=== PATIENT | female | born 1955 | race Caucasian/White ===

== ENCOUNTER → 2024-05-03 13:53 | Outpatient (REF) | payer MEDICARE, OTHER, SELFPAY | LOC: WDC 13:53 | PROVIDERS: ATTENDING PHYSICIAN Surgery; FAMILY PHYSICIAN Family Medicine | DX: Z12.31 Encounter for screening mammogram for malignant neoplasm of breast (principal); Z85.3 Personal history of malignant neoplasm of breast; N64.4 Mastodynia | CPT/HCPCS: 77063; 77067 ==

== ENCOUNTER → 2024-05-05 09:07 | Outpatient (REF) | payer MEDICARE, OTHER, SELFPAY | LOC: RAD 09:07 | PROVIDERS: ATTENDING PHYSICIAN Surgery; FAMILY PHYSICIAN Family Medicine | DX: Z85.3 Personal history of malignant neoplasm of breast (principal) | CPT/HCPCS: 71260; 74177; 78306; A9503; Q9967 ==

== ENCOUNTER 2024-05-11 06:27 | Day surgery (SDC) | payer MEDICARE, OTHER, SELFPAY ==
[2024-05-11] VITALS (10 sets, daily range): BP systolic 135–155; BP diastolic 61–72; BMI 17.9
== END 2024-05-11 13:07 | disposition home or self-care (01) ==
LOC: SDS 06:27
PROVIDERS: ATTENDING PHYSICIAN Internal Medicine Critical Care Medicine
DX: C77.1 Secondary and unspecified malignant neoplasm of intrathoracic lymph nodes (principal); C78.01 Secondary malignant neoplasm of right lung; Z85.3 Personal history of malignant neoplasm of breast; Z72.0 Tobacco use; Z77.29 Contact with and (suspected) exposure to other hazardous substances
CPT/HCPCS: 31629; 31623; 31624; 31654; 88172; 88173; 88112; 88313; 88341; 88342; 88360

== ENCOUNTER 2024-05-24 04:15 | Inpatient (IN) | payer MEDICARE, OTHER, SELFPAY ==
[2024-05-23 22:05] VITALS: BP 191/100
--- NOTE | 2024-05-23 22:26 | ED.GENMED ---
History of Present Illness
General
Chief Complaint: Breathing Problem
Time Seen by Provider: 05/23/24 22:26
History of Present Illness
History of Present Illness:
HPI: The patient presents with shortness of breath worsening over the last few weeks. She was diagnosed with lung cancer earlier this month. She had an endoscopic bronchial ultrasound which confirmed suspected diagnosis of lung cancer as seen on
CT. She spoke to Dr. Lulu su who wanted to come in here 'to get checked for a blood clot'. Patient denies history of COPD but daughter at bedside feels that she does have COPD.
EXAM:
GENERAL: The patient is in mild distress
HEENT: Moist oral mucosa
CARDIOVASCULAR: No murmurs, normal heart rate, regular rhythm, No chest wall tenderness
PULMONARY: Mild respiratory distress, breath sounds are equally decreased
ABDOMEN: Soft with no peritoneal signs, no tenderness
NEUROLOGIC: Fair strength all extremities, no coordination deficits
PSYCHIATRIC: Appropriate mental status, normal insight and judgement, but there may be some very mild cognitive deficits
EXTREMITIES: Nontender, trace bilateral lower extremity edema, moves all extremities equally
SKIN: No rash, no lesions
TIME OF INITIAL ENCOUNTER: 10:30 PM
NUMBER AND COMPLEXITY OF PROBLEMS ADDRESSED AT THE ENCOUNTER
� Chronic conditions affecting care: Breast and lung cancer, lupus, has had surgery for cerebral aneurysm in 2016, she has had Linq implant and explant
� Acute Exacerbation and/or Progression of Chronic Illness: This is an acute problem
� Differential Diagnosis includes: COPD exacerbation, PE, worsening lung mass, heart failure unlikely
AMOUNT AND/OR COMPLEXITY OF DATA TO BE REVIEWED AND ANALYZED
� I performed an independent evaluation of and my interpretation is:
EKG: Sinus 102, septal Q waves
CT: I personally viewed CT imaging. No evidence for PE however mass again same and pleural effusion has worsened significantly
X-rays:
Laboratory Studies: White count 10.5, hemoglobin 11.1, normal renal function, troponin 0.048 (troponin in 2018 was normal), BNP 126, COVID-negative, flu negative
Other:
� Review of other/old records: Echo from 2021. EF greater than 75% with normal diastolic function. She had a CT of the chest 2 weeks ago that showed a new subpleural soft tissue mass in the right upper lobe extending into the
superior mediastinum and encasing the right mainstem bronchus which is felt to be malignancy. She then had endoscopic bronchial ultrasound by Dr. Garg 12 days ago
� Clinical information was obtained by an independent historian: Spoke with daughter at bedside
� Prescriptions/Medications Considered but not given:
� Further testing considered but not performed:
RISK OF COMPLICATIONS AND/OR MORBIDITY OR MORTALITY OF PATIENT MANAGEMENT
� Social determinants of health affecting care: Lives at home, has upcoming PET/CT
� Discussion with other providers: Dr. Brush for admission at 12:42 AM
� Escalation of care including admission/observation vs risk of discharge considered: As patient states that her oncologist was concerned about the center in here 'to be checked for a blood clot', will obtain CTA tonight. Her
room air sat is about 92%, she was placed on supplemental oxygen. I also gave her nebs and steroids for treatment of presumed COPD. CT shows worsening findings. Planning admission to the hospital as she is at least borderline hypoxic and 'doing
poorly' regarding her breathing according to family.
Past History
Past History
ED Past Medical History: Cancer (Breast cancer around the year 1999) and Other (Cutaneous lupus, subarachnoid hemorrhage with ruptured tetlin of May aneurysm requiring coiling in June 2016)
ED Past Surgical History: Other (Mastectomy,subarachnoid hemorrhage with ruptured tetlin of May aneurysm requiring coiling in June 2016)
Social History
Tobacco: Smoker
Alcohol: Occasional
Drug: None
Personal:
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
Family History
Family History: Other (2 cousins w/ SAH and aneurysms)
Phy Exam
Physical Exam
Physical Exam:
See HPI
Scores
Heart Failure Risk
Heart Failure Risk Score: Not Applicable
Course
Orders/Labs/Results
Orders:
Orders
05/23/24 22:10
Electrocardiogram (*1) Urgent
Reason for Study: Shortness of Breath
EKG- Treatment ONCE
05/23/24 22:37
Complete Blood Count/With Diff Urgent
Comprehensive Metabolic Panel Urgent
Protime/PTT Urgent
05/23/24 22:41
Ipratropium/Albuterol Sulfate [Duoneb] 3 ml INH R NOW ONE
MethylPREDNISolone PF [Solu-Medrol Pf] 125 mg IV NOW STA
05/23/24 22:42
0.9% Sodium Chloride 500 ml [Nss] 500 ml IV BOLUS
05/23/24 23:05
COVID-19 Antigen Urgent
Source: Nasal Swab
NT-proBNP Urgent
Troponin I Urgent
Influenza A+B Rapid Molecular Urgent
TYLER Source: Nasal Swab
Specimen Description:
05/24/24 00:15
CT Chest Pe Study Urgent
Reason For Exam: recent dx lung CA, worsening SOB
05/24/24 00:23
Hydrocodone 5/APAP 325 [[place] 5/325] 2 tablet PO NOW STA
Abnormal Lab Results
05/23/24 05/23/24
22:37 23:05
RBC 3.93 L 10^6/uL
(4.20-5.40)
Hgb 11.1 L g/dL
(12.0-16.0)
Hct 31.0 L %
(37.0-47.0)
MCV 78.9 L fL
(81.0-99.0)
Plt Count 468 H 10^3/uL
(130-400)
Abs Immat Gran (auto) 0.1 H 10^3/uL
(0-0.05)
Absolute Monos (auto) 1.6 H 10^3/uL
(0.1-0.6)
Monocytes % 15.2 H %
(1.7-9.3)
Sodium 130 L mmol/L
(135-145)
Creatinine 0.4 L mg/dL
(0.6-1.0)
Glucose 108 H mg/dl
(70-99)
Troponin I 0.048 H* ng/ml
Total Protein 6.1 L g/dl
(6.3-8.2)
Albumin 3.4 L g/dl
(3.5-5.0)
05/23/24 22:37
05/23/24 22:37
Vital Signs
Initial and Last Documented VS:
Initial Vital Signs
Temp Pulse Resp BP Pulse Ox
98.6 F 107 16 191/100 92
05/23/24 22:05 05/23/24 22:05 05/23/24 22:05 05/23/24 22:05 05/23/24 22:05
Last Documented Vital Signs
Temp Pulse Resp BP Pulse Ox
98.6 F 98 24 191/100 93
05/23/24 22:05 05/23/24 23:45 05/23/24 23:45 05/23/24 22:05 05/23/24 23:45
*Critical Care Note
Total Time (30-74mins, 75-104mins- exclusive of procedures): Not Applicable
ED Attending Note
-
Portions of this chart may have been created with voice recognition software.� Occasional wrong word or��sound alike� substitutions may have occurred due to the inherent limitations of voice recognition software.
Discharge Plan
Departure
Patient Disposition: Admit
Date of Disposition: 05/24/24
Time of Disposition: 00:36
Presentation/result/management discussed w/ accepting MD/DO: Hospitalist
Patient with high blood pressure during this ER visit?: Yes
Discharge Problem:
Pleural effusion
Prescriptions:
No Action
cholecalciferol (vitamin D3) [Vitamin D3] 125 mcg (5,000 unit) Tablet
125 mcg PO .Q THURSDAY
hydroxychloroquine 100 mg Tablet
100 mg PO DAILY
rosuvastatin 5 mg Tablet
5 mg PO DAILY
hydrocodone-acetaminophen 10-325 mg Tablet
1 tab PO Q4H
Breztri Aerosphere 160-9-4.8 mcg/actuation Hfa Aerosol Inhaler
2 inh INHALATION BID
albuterol sulfate 90 mcg/actuation Hfa Aerosol Inhaler
2 puff INHALATION Q6H
Primatene Mist 0.125 mg/actuation Hfa Aerosol Inhaler
1 puff INHALATION BID PRN (Reason: if albuterol doesnt work)
Referrals:
Stephanie Bliss MD [Family Provider] -
Interventions
Interventions:
*Risk Screen - Suicide Last Done: 05/23/24 23:00
*General Assessment Last Done: 05/23/24 22:05
*Neglect/Abuse Screening Last Done: 05/23/24 23:00
ED- Fall Risk Assessment Last Done: 05/23/24 22:40
*ED COVID-19 Vaccine History Last Done: 05/23/24 22:05
ED- Cardiac Assessment Last Done: 05/23/24 23:25
ED- Pulmonary Assessment Last Done: 05/23/24 23:25
Discharge Date and Time
Print Language: WOLOF
[2024-05-23 22:47] LABS: % Basophils 0.7 % (0-2); % Immature Granulocytes 0.5 % (0-0.5); % Monocytes 15.2 % (1.7-9.3); % Neutrophils 57.6 % (42.2-75.2); Absolute Basophils 0.1 10^3/uL (0-0.2); Absolute Eosinophils 0.2 10^3/uL (0-0.7); Absolute Immature Granulocytes 0.1 10^3/uL (0-0.05); Absolute Lymphocytes 2.5 10^3/uL (1.2-3.4); Absolute Monocytes 1.6 10^3/uL (0.1-0.6); Hemoglobin 11.1 g/dL (12.0-16.0); Mean Corp Hgb Conc. 35.8 g/dL (33.0-37.0); Mean Corpuscular Hgb 28.2 pg (27.0-31.0); Mean Corpuscular Volume 78.9 fL (81.0-99.0); Mean Platelet Volume 9.2 fL (7.4-10.4); Nucleated Red Blood Cells % 0 %; Platelet Count 468 10^3/uL (130-400); Red Blood Cell Count 3.93 10^6/uL (4.20-5.40); Red Cell Dist. Width 13.4 % (11.5-14.5); White Blood Cell Count 10.5 10^3/uL (4.8-10.8)
[2024-05-23] MEDS: DUONEB 3 ML INH (22:48)
[2024-05-23] MEDS: SOLU-MEDROL PF 125 MG IV (22:48)
[2024-05-23] MEDS: NSS 500 IV (22:50)
[2024-05-23 22:53] LABS: INR 0.94; PT 12.4 Sec (11.4-14.6)
[2024-05-23 22:54] LABS: APTT 32.8 Sec (23.4-35.0)
[2024-05-23 23:01] LABS: ALT (SGPT) 14 U/L (0-35); AST (SGOT) 24 U/L (14-36); Albumin 3.4 g/dl (3.5-5.0); Alkaline Phosphatase 100 U/L (38-126); Blood Urea Nitrogen 9 mg/dl (7-17); Calcium 9.9 mg/dl (8.4-10.2); Carbon Dioxide 26 mmol/L (22-30); Glucose 108 mg/dl (70-99); Total Bilirubin 0.3 mg/dl (0.2-1.3); Total Protein 6.1 g/dl (6.3-8.2); eGFR > 60.00
[2024-05-23 23:03] LABS: Chloride 98 mmol/L (98-107); Potassium 4.2 mmol/L (3.5-5.1); Sodium 130 mmol/L (135-145)
[2024-05-23 23:35] LABS: COVID-19 Antigen Negative (Negative)
[2024-05-23 23:40] LABS: NT-proBNP 126 pg/ml; Troponin I 0.048 ng/ml
[2024-05-24] VITALS (18 sets, daily range): BP systolic 89–184; BP diastolic 55–107; PULSE 86–96; O2SAT 94; BMI 20.4; BMI 20.5
[2024-05-24] MEDS: NORCO 5/325 2 TABLET PO (00:27)
--- NOTE | 2024-05-24 04:08 | HPS.HSE ---
Family Physician
-
Family Physician: Stephanie Bliss
Chief Complaint
-
SOB, Chest Pain
History of Present Illness
Patient is a 68y F with PMH significant for remote breast cancer and recently discovered R chest mass who presents to ED complaining of worsening SOB and chest pain over the past few days. Patient initially developed chest discomfort / back pain
in late March. Evaluation led to discovery of large R lung / chest mass. Patient underwent FOB on 05/11 and pathology was consistent with poorly differentiated carcinoma. She is scheduled for PET scan on Thursday AM.
Patient notes AM cough productive of thick mucus. She denies any fevers / chills. She has sharp / spastic anterior chest pains that are worse with coughing or deep breathing.
She also complains of aching pain in the R upper back.
Patient reports very minimal and very transient relief of her symptoms with current pain meds and inhalers.
With worsening symptoms, she presented to the ED for evaluation and to rule out PE at the direction of her Oncologist.
Medical History
Past Medical History
Past Medical History: Reports Other
Additional Past Medical History:
CVA / R CRAO
SAH
Right Breast Cancer s/p Mastectomy, Chemo, XRT (20+ years ago)
Sjogren's Syndrome
Lupus (Cutaneous)
Peripheral Neuropathy
Past Surgical History: Reports Other
Additional Past Surgical History:
Aneurysm Coil
Right Mastectomy and Reconstruction
Left Temporal Artery Bx
FOB / Biopsy
LINQ
Social History
Tobacco: Smoker (Current / recent every day smoker. > 40 pack years total.)
Alcohol: Occasional
Drug: None
Family History
Family History: Not pertinent
Allergies / Home Medications
Allergies reflects when Allergies were last updated in [employer].
Home Medications with original date entered in [employer]
Allergy/Medication List:
Allergies
Allergy/AdvReac Type Severity Reaction Status Date / Time
No Known Allergies Allergy Verified 05/11/24 08:49
Home Medications
cholecalciferol (vitamin D3) 125 mcg (5,000 unit) tablet (Vitamin D3) 125 mcg PO .Q Thursday07/11/22
hydroxychloroquine 100 mg tablet 100 mg PO DAILY 07/11/22
rosuvastatin 5 mg tablet 5 mg PO DAILY 07/11/22
albuterol sulfate 90 mcg/actuation aerosol inhaler 2 puff inhalation Q6H 05/24/24
budesonide 160 mcg-glycopyr 9 mcg-formot 4.8 mcg/actuation HFA inhaler (Breztri Aerosphere) 2 inh inhalation BID 05/24/24
epinephrine 0.125 mg/actuation aerosol inhaler (Primatene Mist) 1 puff inhalation BID PRN if albuterol doesnt work 05/24/24
hydrocodone 10 mg-acetaminophen 325 mg tablet 1 tab PO Q4H 05/24/24
Review of Systems
-
History Source: Patient
A 12 point ROS was completed and negative except as noted: Yes
Constitutional: Reports Fatigue; Denies Fever or Chills
EENT: Denies Sore Throat
Respiratory: Reports Cough and Trouble Breathing; Denies Hemoptysis
Cardiac: Reports Chest Pain; Denies Diaphoresis, Palpitations or Syncope
Abdomen/GI: Reports Nausea; Denies Abdominal Pain, Vomiting, Diarrhea or Constipated
: Denies Dysuria, Frequency or Flank Pain
Musculoskeletal: Reports Other (Back pain); Denies Joint Pain or Edema
Neurological: Denies Dizzy or Headache
Psych: Denies Depression or Anxiety
Physical Exam
Vital Signs
Vital Signs
Temp Pulse Resp BP Pulse Ox
98.6 F 91 23 152/61 94
05/23/24 22:05 05/24/24 03:15 05/24/24 03:15 05/24/24 03:00 05/24/24 03:15
Physical Exam
General: Other (68y F in no acute distress.)
HEENT: Other (Dry MM, neck supple.)
Respiratory: Other (Decreased BS throughout the R lung. L essentially clear.)
Cardiac: S1/S2 and Regular Rhythm; No Murmur
GI: Soft, Non Tender, Non Distended and Normal Bowel Sounds
Musculoskeletal: No Clubbing, No Cyanosis and No Edema
Neuro: AO x 3
Laboratory Results
-
05/23/24 22:37
05/23/24 22:37
Laboratory Results
PT 12.4 Sec (11.4-14.6) 05/23/24 22:37
INR 0.94 05/23/24 22:37
APTT 32.8 Sec (23.4-35.0) 05/23/24 22:37
Total Bilirubin 0.3 mg/dl (0.2-1.3) 05/23/24 22:37
AST 24 U/L (14-36) 05/23/24 22:37
ALT 14 U/L (0-35) 05/23/24 22:37
Alkaline Phosphatase 100 U/L (38-126) 05/23/24 22:37
Troponin I 0.048 ng/ml H* 05/23/24 23:05
Impression/Plan
-
A/P: Patient is a 68y F with PMH significant for remote breast cancer and recently diagnosed R lung mass who presents to ED complaining of SOB and chest pain.
Right Lung Mass / malignancy
Right Pleural Effusion
Subjective Dyspnea secondary to the above
Chest Pain secondary to the above
- Admit for further evaluation and treatment.
- Adjust medication regimen as needed for improved symptom control.
- Pulmonary and Oncology evaluations for additional recommendations.
- ? R thoracentesis which may help to temporarily improve dyspnea.
- Patient is scheduled for PET CT as next step in her evaluation on Thursday.
- CT was negative for PE. No evidence for acute infectious process.
Hyponatremia
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
- Check urine studies.
- Fluid restriction and follow for improvement.
Sjogren's
Lupus
- Stable. Continue Plaquenil.
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
- No new neurologic deficits.
DVT Prophylaxis: SCDs
Code Status: Full
[2024-05-24] MEDS: MORPHINE SULFATE 2 MG IV (04:18)
[2024-05-24 05:00] LABS: Urine Sodium 56 mmol/L (30-90)
[2024-05-24 05:13] LABS: Osmolality Urine 409 mOsm/kg (300-900)
[2024-05-24] MEDS: VENTOLIN NEBULES 2.5 MG INH (05:39)
[2024-05-24 06:37] LABS: Hematocrit 31.8 % (37.0-47.0); Hemoglobin 11.3 g/dL (12.0-16.0); Mean Corp Hgb Conc. 35.5 g/dL (33.0-37.0); Mean Corpuscular Hgb 28.4 pg (27.0-31.0); Mean Corpuscular Volume 79.9 fL (81.0-99.0); Mean Platelet Volume 9.4 fL (7.4-10.4); Platelet Count 498 10^3/uL (130-400); Red Blood Cell Count 3.98 10^6/uL (4.20-5.40); Red Cell Dist. Width 13.5 % (11.5-14.5); White Blood Cell Count 7.2 10^3/uL (4.8-10.8)
[2024-05-24 06:50] LABS: Blood Urea Nitrogen 6 mg/dl (7-17); Calcium 10.1 mg/dl (8.4-10.2); Carbon Dioxide 24 mmol/L (22-30); Chloride 100 mmol/L (98-107); Estimated Creatinine Clearance 63 ml/min; Glucose 282 mg/dl (70-99); Potassium 4.5 mmol/L (3.5-5.1); Sodium 131 mmol/L (135-145); eGFR > 60.00
--- NOTE | 2024-05-24 06:54 | PTCARENOTE ---
Pt admitted to room 8534. Pt AAOx3 VSS c/o SOB. Pt legally blind. family at bed side. Pt oriented to room. safety measures in place
[2024-05-24] MEDS: SYMBICORT 160/4.5 MCG INHALER 2 PUFF INH (07:28)
[2024-05-24] MEDS: SPIRIVA RESPIMAT 2.5 MCG 2 PUFF INH (07:28)
[2024-05-24] MEDS: CRESTOR 5 MG PO (08:21)
[2024-05-24] MEDS: PLAQUENIL 100 MG PO (08:21)
[2024-05-24] MEDS: DILAUDID 0.5 MG IV ×2 (08:22→12:32)
[2024-05-24] MEDS: TYLENOL 1000 MG PO (08:22)
--- NOTE | 2024-05-24 08:41 | PTCARENOTE ---
Assumed care of pt from night RN. Pt received awake and alert, Ox3. She is Blind at baseline. VSS, CM shows NSR 80's, POX 96%/2L. Breath sounds very distant and diminished. She C/o pain 5/10. Dilaudid 0.5 mg given as per DEC. Awaiting Pulmonary
CX. Pt oriented to room and surroundings.
--- NOTE | 2024-05-24 08:41 | W.PN.UPDATE ---
Update Note
Progress Note Update
68y F with PMH significant for remote breast cancer and recently discovered R chest mass who was admitted for worsening shortness of breath and chest pain. Appreciate pulmonology input, the symptoms are likely due to her large right lung/chest
mass. Pathology shows poorly differentiated carcinoma.
Right thoracentesis on 05/24 drained 2 L of fluid.
Cleared by pulmonology and oncology for discharge so she can have her PET scan tomorrow, 05/25.
Patient ambulated with respiratory therapy, satting 91%. She does not need oxygen upon discharge.
She can follow-up with her PCP, usual oncologist, and usual hybrid derivatives trader in the office.
--- NOTE | 2024-05-24 09:32 | CON.PUL ---
Consultation
Consultation Request
Date/Time Consultation Requested: 05/24/2024
Date/Time Consultation Performed: 05/24/2024
Requesting Provider: Dr. Brush
Performing Provider: Dr. Xavier Duarte
Reason for Consultation: shortness of breath/lung mass/pleural effusion
Medical History
-
History of Present Illness:
68-year-old woman with past medical history significant for remote breast cancer and recently discovered right chest mass who presented to [facility] emergency room complaining of worsening shortness of breath and chest pain over the past few
days. It is noted that the patient has recently been diagnosed with poorly differentiated carcinoma. At that time presented with worsening chest pain. Found to have a large right upper lobe lung mass with a tiny pleural effusion. Underwent
bronchoscopy with biopsy on 05/11/2024.
She was awaiting a PET scan to determine further therapy with oncology.
She does report chronic cough with thick mucus. Denies any fevers or chills. She has pleuritic type chest pain with coughing the pain is sharp and significant.
CT of the chest was performed and ruled out pulmonary embolism.
There is a new moderate right pleural effusion, worse compared to prior.
Past Medical History
Past Medical History: Other (See assessment and plan findings)
Social History
Tobacco: Smoker (40 pack years)
Alcohol: Occasional
Drug: None
Family History
Family History: Reviewed & Not Pertinent
Allergies / Home Medications
Allergies
Allergy/AdvReac Type Severity Reaction Status Date / Time
No Known Allergies Allergy Verified 05/11/24 08:49
Home Medications
�Medication �Instructions �Recorded �Confirmed �Last Taken �Type
cholecalciferol (vitamin D3) 125 125 mcg PO .Q Thursday07/11/22 05/24/24 05/01/24 History
mcg (5,000 unit) tablet (Vitamin
D3)
hydroxychloroquine 100 mg tablet 100 mg PO DAILY 07/11/22 05/24/24 05/09/24 History
rosuvastatin 5 mg tablet 5 mg PO DAILY 07/11/22 05/24/24 05/09/24 History
albuterol sulfate 90 mcg/actuation 2 puff inhalation Q6H 05/24/24 05/24/24 Unknown History
aerosol inhaler
budesonide 160 mcg-glycopyr 9 2 inh inhalation BID 05/24/24 05/24/24 Unknown History
mcg-formot 4.8 mcg/actuation HFA
inhaler (Breztri Aerosphere)
epinephrine 0.125 mg/actuation 1 puff inhalation BID PRN if 05/24/24 05/24/24 Unknown History
aerosol inhaler (Primatene Mist) albuterol doesnt work
hydrocodone 10 mg-acetaminophen 1 tab PO Q4H 05/24/24 05/24/24 Unknown History
325 mg tablet
Review of Systems
-
History Source: Patient
All other systems: Negative unless noted
Vitals / Labs / Diagnostic Testing
Vital Signs
Temp Pulse Resp BP Pulse Ox
99.0 F 97 18 165/58 96
05/24/24 07:43 05/24/24 07:43 05/24/24 07:43 05/24/24 06:26 05/24/24 07:43
Lab Data
05/24/24 05:51
05/24/24 05:51
Laboratory Results
05/23/24
22:37
PT 12.4
INR 0.94
APTT 32.8
Microbiology
05/23/24 23:05 Nasal Swab Influenza Types A & B (GELY) - Final
Negative for Influenza A & B, NAAT
Negative results must be combined with clinical observations
and patient history.
Nucleic Acid Amplification test (NAAT)performed on the
[employer] platform.
Diagnostic Testing:
Physical Exam
-
HEENT: Normocephalic
Cardiovascular: S1/S2
Respiratory: Other (Decreased breath sounds in the right)
GI: Soft and Non Distended
Neurology: Awake, Alert, Oriented and No Motor Deficits
Skin: Warm
General: Respiratory Distress (n)
Assessment
-
68-year-old woman with recent diagnosis of poorly differentiated carcinoma, large right lung mass status post bronchoscopy 05/11/2024. Awaiting PET scan.
Returns to the hospital complaining of sharp pleuritic type chest pain. Significant without relief at home with any remedies.
Pleuritic type chest pain there are large right mass/pleural effusion.
Poorly differentiated carcinoma status post bronchoscopy 05/11/2024
Worsening right pleural effusion.
CT chest: Moderate pleural effusion/large right upper lobe lung mass/no evidence for pulmonary embolism.
Hyponatremia
Conditions present prior admission:
Tobacco [id number]-98-[id number]-year history. Continues to smoke 10 cigarettes/day.
History of Sjogren disease
SLE- on hydroxychloroquine-follows up with Dr. Frank Chew
History of subarachnoid hemorrhage/cryptogenic CVA/right eye blindness
History of breast cancer 2003 status post right mastectomy, bilateral implant, chemoradiation.
Centrilobular emphysema on CAT scan/COPD moderate to severe- Brecristinotri
Follows up with Dr. Garg
Chronic exposure to a chicken coop
Assessment and plan:
Chest pain related to enlarging lung mass and now enlarging right pleural effusion.
-
Chest pain and related to enlarging lung mass, possibly invading parietal pleura.
Worsening right pleural effusion likely malignant.
Given shortness of breath/symptoms recommend thoracentesis for symptomatic relief. Will also send for cytology.
IR consult placed by me.
-
No evidence for acute exacerbation of COPD.
Patient did receive IV Solu-Medrol in the emergency room.
Continue with inhalers
No indication for antibiotics or further steroids from the pulmonary perspective
-
Narcotics for pain per primary team. Watch respiratory status closely.
-
Oncology has been consulted
In the outpatient setting PET/CT pending for tomorrow to determine further cancer care.
-
Will follow
-
Discussed with , hopefully patient can be discharged later today so she can obtain her PET/CT tomorrow.
Home oxygen assessment
--- NOTE | 2024-05-24 11:12 | PTCARENOTE ---
Pt to IR for thora.
[2024-05-24 11:33] LABS: Glycohemoglobin (HgbA1c) 5.9 % (4.0-5.6)
[2024-05-24 12:26] LABS: Body Fluid pH 7.35
--- NOTE | 2024-05-24 12:26 | CM ---
spoke to pt in room, she is prev indep, lives with her husb in a 1 story home with 1 step to enter. she has a cane she uses if needed. she denies any dc planning needs. plan is for dc to home when medically stable.
[2024-05-24 12:27] LABS: Glucose - Point of Care 151 mg/dl (70-99)
--- NOTE | 2024-05-24 13:00 | PTCARENOTE ---
Dilaudid 0.5 mg IV given as per MAR for pain 5/10 in right shoulder and chest.
[2024-05-24 13:20] LABS: Body Fluid Second Tech BP
[2024-05-24 13:39] LABS: Body Fluid Mononuclear 81.5 %; Body Fluid Polymorphonuclear 18.5 %; Body Fluid WBC 1058 /CUMM
[2024-05-24 13:44] LABS: Body Fluid Glucose 199 mg/dl; Body Fluid LDH 879 U/L; Body Fluid Protein 4.3 g/dl
--- NOTE | 2024-05-24 14:09 | CON.ONC ---
Impression
Impression
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
Worsening, symptomatic right pleural effusion, status/post thoracentesis today
History of stage II breast cancer, currently no evidence of disease
Blindness due to bilateral retinal artery occlusions from Sjogren's disease
Plan
Plan
Agree with plans for possible discharge so that she can undergo the PET scan tomorrow. Further plans regarding treatment of her lung cancer will be drawn up in our office next week.
Patient History
History of Present Illness
Consult from Dr. Brush regarding lung cancer
This 68-year-old woman was admitted with chest pain and breathing difficulties. These have been coming on over the previous several days. She was advised by our office to come to the emergency room. Evaluation here excluded pulmonary embolus, but
did show further growth of a pleural effusion. This was tapped today, with some relief of her breathing difficulties but no real change in her discomfort.
Past-Medical/Surgical History
As per problem list below.
Social history: She has been a lifelong heavy smoker.
Family history is noncontributory.
Patient Medication
�Medication �Instructions �Recorded �Confirmed �Last Taken �Type
cholecalciferol (vitamin D3) 125 125 mcg PO .Q Thursday07/11/22 05/24/24 05/01/24 History
mcg (5,000 unit) tablet (Vitamin
D3)
hydroxychloroquine 100 mg tablet 100 mg PO DAILY 07/11/22 05/24/24 05/09/24 History
rosuvastatin 5 mg tablet 5 mg PO DAILY 07/11/22 05/24/24 05/09/24 History
albuterol sulfate 90 mcg/actuation 2 puff inhalation Q6H 05/24/24 05/24/24 Unknown History
aerosol inhaler
budesonide 160 mcg-glycopyr 9 2 inh inhalation BID 05/24/24 05/24/24 Unknown History
mcg-formot 4.8 mcg/actuation HFA
inhaler (Breztri Aerosphere)
epinephrine 0.125 mg/actuation 1 puff inhalation BID PRN if 05/24/24 05/24/24 Unknown History
aerosol inhaler (Primatene Mist) albuterol doesnt work
hydrocodone 10 mg-acetaminophen 1 tab PO Q4H 05/24/24 05/24/24 Unknown History
325 mg tablet
Active Medications
Generic Name Dose Route Start Last Admin
Trade Name Freq PRN Reason Stop Dose Admin
Acetaminophen 1,000 mg 05/24/24 08:00 05/24/24 08:22
Acetaminophen 500 Mg Tablet PO 06/21/24 07:59 1,000 mg
TID NEELIMA Administration
Albuterol Sulfate 2.5 mg 05/24/24 05:34 05/24/24 05:39
Albuterol Nebs 2.5 Mg/3 Ml Ampul INH 2.5 mg
R Q4HPRN PRN Administration
SOB
Protocol
Budesonide/Formoterol Fumarate 2 puff 05/24/24 08:00 05/24/24 07:28
Symbicort Inhaler 160/4.5 INH 06/21/24 07:59 2 puff
R BID NEELIMA Administration
Dextrose 12.5 grams 05/24/24 08:43
Dextrose 50% (0.5 Grams/Ml) 50 Ml Syringe IV 06/21/24 08:42
Q72HIEH PRN
hypoglycemia
Protocol
Glucagon 1 mg 05/24/24 08:43
Glucagon 1 Mg Vial IM 06/21/24 08:42
PRN PRN
hypoglycemia
Protocol
Hydromorphone HCl 0.5 mg 05/24/24 05:34 05/24/24 12:32
Hydromorphone 0.5 Mg/0.5 Ml Syringe IV 06/07/24 05:33 0.5 mg
Q4HPRN PRN Administration
Severe Pain
Hydroxychloroquine Sulfate 100 mg 05/24/24 08:00 07/30/24 08:21
Hydroxychloroquine 200 Mg Tablet PO 06/21/24 07:59 100 mg
DAILY NEELIMA Administration
Insulin Aspart 0 units 05/24/24 11:30 05/24/24 12:29
Insulin Aspart Moderate Resistance 300 Units/3 Ml Pen.Injctr SC 06/21/24 11:29 Not Given
AC NEELIMA
Protocol
Ondansetron HCl 4 mg 05/24/24 05:34
Ondansetron 4 Mg/2 Ml Vial IV 06/21/24 05:33
Q6HPRN PRN
nausea and vomiting
Oxycodone HCl 10 mg 05/24/24 05:34
Oxycodone 10 Mg Regular Release Tablet PO 06/07/24 05:33
Q4HPRN PRN
Moderate Pain
Rosuvastatin Calcium 5 mg 05/24/24 08:00 05/24/24 08:21
Rosuvastatin (Crestor) 5 Mg Tablet PO 06/21/24 07:59 5 mg
DAILY NEELIMA Administration
Sodium Chloride 0 flush 05/24/24 06:00
Sodium Chloride 0.9% (Flush) Syringe IV 06/21/24 05:59
PER PROTOCOL NEELIMA
Tiotropium [place] 2 puff 05/24/24 08:00 05/24/24 07:28
Tiotropium (Spiriva Respimat) 2.5 Mcg Inhaler INH 06/21/24 07:59 2 puff
R DAILY NEELIMA Administration
Review of Systems
-
All Other Systems: Reviewed and Negative
Physical Exam
-
Physical examination shows the patient to be in no acute distress.
HEENT exam is unremarkable.
There are no palpable nodes.
Chest dullness and diminished breath sounds on the right.
The heart is regular with no murmur or gallop.
The abdomen is soft and nontender with no organomegaly or masses.
Extremities are unremarkable.
Neurologic is grossly intact.
Labs
Lab Results
WBC 7.2 10^3/uL (4.8-10.8) 05/24/24 05:51
RBC 3.98 10^6/uL (4.20-5.40) L 05/24/24 05:51
Hgb 11.3 g/dL (12.0-16.0) L 05/24/24 05:51
Hct 31.8 % (37.0-47.0) L 05/24/24 05:51
MCV 79.9 fL (81.0-99.0) L 05/24/24 05:51
MCH 28.4 pg (27.0-31.0) 05/24/24 05:51
MCHC 35.5 g/dL (33.0-37.0) 05/24/24 05:51
RDW 13.5 % (11.5-14.5) 05/24/24 05:51
Plt Count 498 10^3/uL (130-400) H 05/24/24 05:51
MPV 9.4 fL (7.4-10.4) 05/24/24 05:51
Abs Immat Gran (auto) 0.1 10^3/uL (0-0.05) H 05/23/24 22:37
Absolute Neuts (auto) 6.0 10^3/uL (1.4-6.5) 05/23/24 22:37
Absolute Lymphs (auto) 2.5 10^3/uL (1.2-3.4) 05/23/24 22:37
Absolute Monos (auto) 1.6 10^3/uL (0.1-0.6) H 05/23/24 22:37
Absolute Eos (auto) 0.2 10^3/uL (0-0.7) 05/23/24 22:37
Absolute Basos (auto) 0.1 10^3/uL (0-0.2) 05/23/24 22:37
Immature Gran % 0.5 % (0-0.5) 05/23/24 22:37
Neutrophils % 57.6 % (42.2-75.2) 05/23/24 22:37
Lymphocytes % 24.0 % (20.5-51.1) 05/23/24 22:37
Monocytes % 15.2 % (1.7-9.3) H 05/23/24 22:37
Eosinophils % 2.0 % (0-6) 05/23/24 22:37
Basophils % 0.7 % (0-2) 05/23/24 22:37
Creatinine 0.4 mg/dL (0.6-1.0) L 05/24/24 05:51
Vital Signs
Vital Signs
Temp Pulse Resp BP Pulse Ox
98.7 F 80 16 157/73 94
05/24/24 12:20 05/24/24 12:20 05/24/24 12:20 05/24/24 11:15 05/24/24 12:20
[2024-05-24] MEDS: ROXICODONE 10 MG PO (15:27)
[2024-05-24] MEDS: ZOFRAN 4 MG IV (15:34)
--- NOTE | 2024-05-24 15:58 | PTCARENOTE ---
Pt given oxygen trial. Started out on RA sitting, POX 95%, Ambulated 150 ft on RA, POX 91-92%
--- NOTE | 2024-05-24 16:07 | W.DCSUMMARY ---
Discharge Summary
Discharge Data
Date of Admission: 05/24/24
Date of Discharge: 05/24/24
-
Pending Results: No
Hospital Course
Discharge diagnoses:
Acute hypoxic respiratory insufficiency
Right lung mass/carcinoma
Probable malignant right pleural effusion
Shortness of breath
Chest pain from right lung mass
History of stage II breast cancer
Blindness due to bilateral retinal artery occlusions from Sjogren's disease
Consults: Pulmonology, oncology
Chest CT:
There is 9.5 cm pulmonary malignancy in the medial aspect of the right upper lobe with 2 cm associated satellite lesion, mediastinal lymphadenopathy and moderate-large right-sided pleural effusion with associated partial right lower lobe and right
middle lobe atelectasis
Procedures:
05/24/2024 right thoracentesis draining 2 L of fluid
Hospital course:
68-year-old female with a past medical history of stage II breast cancer, blindness due to bilateral retinal artery occlusions from Sjogren's disease, and recently diagnosed lung carcinoma was admitted for worsening shortness of breath, and chest
pain from her right lung mass.
Patient was seen in conjunction with pulmonology and oncology, and underwent right thoracentesis draining 2 L of fluid. She felt remarkably better after her right thoracentesis.
Patient had acute hypoxic respiratory insufficiency. Her hypoxia resolved after her thoracentesis. Home oxygen evaluation was performed, she did not require any oxygen at rest or with ambulation.
Patient has a PET scan scheduled on 05/25/2024. She has been cleared for discharge by both pulmonology and oncology so that she can obtain her PET scan. She needs to follow-up with her primary care doctor in 1 week, as well as pulmonology and
oncology in the office.
Disposition: Home self-care
Discharge planning: Required 45 minutes
Discharge Plan
-
Patient Disposition: Home (Routine Discharge)
Discharge Diagnosis/Procedures: Right lung carcinoma, right pleural effusion, history of stage II breast cancer
Condition: Fair
Diet: Low Fat and Low Cholesterol
Activity: As tolerated
Driving Restrictions: As prior to admission
Activity Restrictions/Additional Instructions:
Please follow-up with your usual vinyl dipper, oncologist, and primary care doctor in 1 week.
Referrals:
Stephanie Bliss MD [Family Provider] - in one week
Prescriptions:
New
lorazepam [Ativan] 0.5 mg tablet
0.5 mg PO BID PRN (Reason: anxiety) Qty: 60 0RF
polyethylene glycol 3350 17 gram/dose powder
17 g PO DAILY Qty: 510 0RF
hydromorphone [Dilaudid] 4 mg tablet
4 mg PO Q6H PRN (Reason: breakthrough pain) Qty: 30 0RF
ondansetron 4 mg tablet,disintegrating
4 mg PO Q6H PRN (Reason: nausea and vomiting) Qty: 20 0RF
Continued
cholecalciferol (vitamin D3) [Vitamin D3] 125 mcg (5,000 unit) Tablet
125 mcg PO .Q THURSDAY
hydroxychloroquine 100 mg Tablet
100 mg PO DAILY
rosuvastatin 5 mg Tablet
5 mg PO DAILY
hydrocodone-acetaminophen 10-325 mg Tablet
1 tab PO Q4H
Breztri Aerosphere 160-9-4.8 mcg/actuation Hfa Aerosol Inhaler
2 inh INHALATION BID
albuterol sulfate 90 mcg/actuation Hfa Aerosol Inhaler
2 puff INHALATION Q6H
Primatene Mist 0.125 mg/actuation Hfa Aerosol Inhaler
1 puff INHALATION BID PRN (Reason: if albuterol doesnt work)
Discharge Orders:
Discharge Patient (As Directed); Ordered 05/24/24
Ordered By: Min Posadas
Care Plan Goals
Care Plan Goals:
Problem: Readiness for enhanced knowledge related to diagnosis and treatment plan
Goal: Understand your diagnosis and treatment plan needs, including medications if applicable.
Instructions: Know your diagnosis, underlying causes and treatment plan options, including medications if applicable. Consult with your health care team to learn about your diagnosis and treatment plan, including medications if applicable.
Discharge Date and Time
Discharge Date/Time: 05/24/24 16:53
Print Language: [place]
--- NOTE | 2024-05-24 16:54 | PTCARENOTE ---
All D/C info reviewed with pt and family, all questions answered. Pt D/C'd home with family.
== END 2024-05-24 16:53 | disposition home or self-care (01) | DRG 181 ==
LOC: IVU 04:15
PROVIDERS: Internal Medicine Critical Care Medicine; Physician Assistant; ADMITTING PHYSICIAN Hospitalist; ATTENDING PHYSICIAN Family Medicine; CONSULT PHYSICIAN Internal Medicine Critical Care Medicine; CONSULT PHYSICIAN Internal Medicine Hematology & Oncology; EMERGENCY PHYSICIAN Emergency Medicine; FAMILY PHYSICIAN Family Medicine
PROC: 0W993ZX Drainage of Right Pleural Cavity, Percutaneous Approach, Diagnostic (ICD-10-PCS; 2024-05-24)
DX: C34.11 Malignant neoplasm of upper lobe, right bronchus or lung (principal); E22.2 Syndrome of inappropriate secretion of antidiuretic hormone; J91.0 Malignant pleural effusion; J98.11 Atelectasis; R09.02 Hypoxemia; H54.61 Unqualified visual loss, right eye, normal vision left eye; M35.00 Sjogren syndrome, unspecified; R59.0 Localized enlarged lymph nodes; F17.210 Nicotine dependence, cigarettes, uncomplicated; Z85.3 Personal history of malignant neoplasm of breast; Z86.73 Personal history of transient ischemic attack (TIA), and cerebral infarction without residual deficits
CPT/HCPCS: 88305; 32555; 71045; 71275; 80048; 80053; 82945; 82962; 83036; 83615; 83880; 83935; 83986; 84157; 84300; 84484; 85025; 85027; 85610; 85730; 87502; 87811; 88112; 88341; 88342; 88360; 89051; 93005; 94640; 96361; 96374; 97163; 97166; 97167; 99285; Q9967

== ENCOUNTER → 2024-06-06 09:05 | Outpatient (REF) | payer MEDICARE, OTHER, SELFPAY ==
[2024-06-06 09:56] VITALS: BP 142/60; BP_SYST 96
[2024-06-06] MEDS: ANCEF 10 IV (10:14)
[2024-06-06 12:05] VITALS: BP 134/54; BP_SYST 107
[2024-06-06 12:19] VITALS: BP 122/50
[2024-06-06 13:20] VITALS: BP 133/66
== END ==
LOC: RADI 09:05
PROVIDERS: ATTENDING PHYSICIAN Internal Medicine Hematology & Oncology; FAMILY PHYSICIAN Family Medicine
DX: C34.90 Malignant neoplasm of unspecified part of unspecified bronchus or lung (principal); J90 Pleural effusion, not elsewhere classified; Z85.3 Personal history of malignant neoplasm of breast
CPT/HCPCS: 36561; 76604; 76937; 77001; 99152; 99153

== ENCOUNTER 2024-06-06 13:04 | Emergency (ER) | payer MEDICARE, OTHER, SELFPAY ==
[2024-06-06 13:17] VITALS: BP 140/60
--- NOTE | 2024-06-06 13:37 | ED.GENMED ---
ED Provider Triage
<Gaurav Barajas PA-C - Last Filed: 06/06/24 20:56>
-
Patient seen by provider in Triage?: Seen in Triage
From IR after fall yesterday. Had port placed today but has trauma to head, face and right hand. CT head/face and right hand x-rays ordered. Lung CA history.
History of Present Illness
<Gaurav Barajas PA-C - Last Filed: 06/06/24 20:56>
General
Chief Complaint: Head Injury
Time Seen by Provider: 06/06/24 13:38
<Tiffany Gordillo MD - Last Filed: 06/06/24 17:03>
History of Present Illness
History of Present Illness:
68-year-old female with a recent diagnosis of lung CA, states that she got up in the middle the night to use the bathroom and excellently fell down basement steps approximately 13, hitting her face and head. She does not think she lost
consciousness. She called out to her , he helped her up and she was able to get back upstairs. She suffered a nosebleed which was short-lived. She did not want to go to the emergency department that time given that she was due to get a
port placement today. She presents emergency department from IR after having a port placed. She states that they tried to remove pleural fluid but there was not any they are to remove. She is due to start chemo tomorrow. Daughter is with her and
states overall she has had a rapid decline in her general condition, with increasing weakness, occasional confusing and word finding difficulty. Patient denies chest pain, abdominal pain, neck pain, numbness, tingling, headache, dizziness. She is
blind at baseline. She has chronic dyspnea which is unchanged.
Past History
<Gaurav Barajas PA-C - Last Filed: 06/06/24 20:56>
Past History
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
ED Past Surgical History: Other (Mastectomy,subarachnoid hemorrhage with ruptured king [place] of May aneurysm requiring coiling in June 2016)
Social History
Tobacco: Smoker
Alcohol: Occasional
Drug: None
Personal:
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
Family History
Family History: Other (2 cousins w/ SAH and aneurysms)
<Tiffany Gordillo MD - Last Filed: 06/06/24 17:03>
Past History
ED Past Medical History: Cancer (Breast cancer around the year 1999, lungs CTA)
Phy Exam
<Tiffany Gordillo MD - Last Filed: 06/06/24 17:03>
Physical Exam
Physical Exam:
GENERAL: Alert , in no apparent distress
EYE: pupils equal and round, no photophobia
NECK: Supple, no significant adenopathy.
ENT: o/p clr, mmm. Patient has nasal bone deformity with bruising and superficial abrasion noted at nasal bridge, no septal hematoma, no crepitus, no other facial bone areas of tenderness or abnormalities, no partida, no raccoon
CARDIAC: Regular rate and rhythm .
LUNGS: Equal but decreased breath sounds bilaterally, no acute respiratory distress, no wheezes/rales/rhonchi
ABDOMEN: Soft, without focal tenderness, no r/g
NEUROLOGICAL: Alert and oriented, no focal neuro deficits with exception of baseline blind
SKIN: Warm and dry, skin intact.
MUSCULOSKELETAL: No edema, well perfused.
PSYCH: Normal and appropriate interaction.
Course
<Gaurav Barajas PA-C - Last Filed: 06/06/24 20:56>
Orders/Labs/Results
Orders:
Orders
06/06/24 13:36
[address] Facial Bones W/o Iv Contras Urgent
Comment:
Reason For Exam: fall
CT Head W/o Iv Contrast Urgent
Comment:
Reason For Exam: fall
CR Hand - Right Min 3 Views Urgent
Comment:
Reason For Exam: fall, pain right middle finger
06/06/24 14:05
Pulse Ox/cont/shift [RESP] Stat
Quantity: 1
06/06/24 14:06
Electrocardiogram (*1) Stat
Reason for Study: Other
Other Reason for Exam: chest pain
Cardiac Monitoring- Treatment ONCE
EKG- Treatment ONCE
06/06/24 14:33
Complete Blood Count/No Diff Urgent
Comprehensive Metabolic Panel Urgent
06/06/24 16:52
Lorazepam [Ativan] 2 mg .ROUTE .STK-MED ONE
06/06/24 16:54
Lorazepam [Ativan] 1 mg IV NOW STA
06/06/24 18:15
Heparin Pf [Heparin Lock Flush] 500 unit IV PER PROTOCOL
Abnormal Lab Results
06/06/24
14:33
WBC 11.2 H 10^3/uL
(4.8-10.8)
RBC 3.14 L 10^6/uL
(4.20-5.40)
Hgb 8.9 L g/dL
(12.0-16.0)
Hct 26.1 L %
(37.0-47.0)
Plt Count 502 H 10^3/uL
(130-400)
Sodium 127 L mmol/L
(135-145)
Chloride 95 L mmol/L
(98-107)
Carbon Dioxide 34 H mmol/L
(22-30)
BUN 5 L mg/dl
(7-17)
Creatinine 0.4 L mg/dL
(0.6-1.0)
Total Protein 5.0 L g/dl
(6.3-8.2)
Albumin 1.6 L g/dl
(3.5-5.0)
06/06/24 14:33
06/06/24 14:33
Vital Signs
Initial and Last Documented VS:
Initial Vital Signs
Temp Pulse Resp BP Pulse Ox
99.9 F 113 22 140/60 85
06/06/24 13:17 06/06/24 13:17 06/06/24 13:17 06/06/24 13:17 06/06/24 13:17
Last Documented Vital Signs
Temp Pulse Resp BP Pulse Ox
99.9 F 114 26 136/59 95
06/06/24 13:17 06/06/24 17:54 06/06/24 17:00 06/06/24 17:58 06/06/24 17:45
<Tiffany Gordillo MD - Last Filed: 06/06/24 17:03>
Orders/Labs/Results
Orders:
Orders
06/06/24 13:36
[address] Facial Bones W/o Iv Contras Urgent
Comment:
Reason For Exam: fall
CT Head W/o Iv Contrast Urgent
Comment:
Reason For Exam: fall
CR Hand - Right Min 3 Views Urgent
Comment:
Reason For Exam: fall, pain right middle finger
06/06/24 14:05
Pulse Ox/cont/shift [RESP] Stat
Quantity: 1
06/06/24 14:06
Electrocardiogram (*1) Stat
Reason for Study: Other
Other Reason for Exam: chest pain
Cardiac Monitoring- Treatment ONCE
EKG- Treatment ONCE
06/06/24 14:33
Complete Blood Count/No Diff Urgent
Comprehensive Metabolic Panel Urgent
06/06/24 16:52
Lorazepam [Ativan] 2 mg .ROUTE .STK-MED ONE
06/06/24 16:54
Lorazepam [Ativan] 1 mg IV NOW STA
06/06/24 18:15
Heparin Pf [Heparin Lock Flush] 500 unit IV PER PROTOCOL
Abnormal Lab Results
06/06/24
14:33
WBC 11.2 H 10^3/uL
(4.8-10.8)
RBC 3.14 L 10^6/uL
(4.20-5.40)
Hgb 8.9 L g/dL
(12.0-16.0)
Hct 26.1 L %
(37.0-47.0)
Plt Count 502 H 10^3/uL
(130-400)
Sodium 127 L mmol/L
(135-145)
Chloride 95 L mmol/L
(98-107)
Carbon Dioxide 34 H mmol/L
(22-30)
BUN 5 L mg/dl
(7-17)
Creatinine 0.4 L mg/dL
(0.6-1.0)
Total Protein 5.0 L g/dl
(6.3-8.2)
Albumin 1.6 L g/dl
(3.5-5.0)
06/06/24 14:33
06/06/24 14:33
Vital Signs
Initial and Last Documented VS:
Initial Vital Signs
Temp Pulse Resp BP Pulse Ox
99.9 F 113 22 140/60 85
06/06/24 13:17 06/06/24 13:17 06/06/24 13:17 06/06/24 13:17 06/06/24 13:17
Last Documented Vital Signs
Temp Pulse Resp BP Pulse Ox
99.9 F 114 26 136/59 95
06/06/24 13:17 06/06/24 17:54 06/06/24 17:00 06/06/24 17:58 06/06/24 17:45
<Gaurav Barajas PA-C - Last Filed: 06/06/24 20:56>
*Critical Care Note
Total Time (30-74mins, 75-104mins- exclusive of procedures): Not Applicable
<Tiffany Gordillo MD - Last Filed: 06/06/24 17:03>
Update Note
Update Note:
Patient presents to the Emergency Department with ___recent fall
Number and Complexity of Problems Addressed at the Encounter
� Chronic conditions affecting care: Lung cancer
� Acute Exacerbation and/or Progression of Chronic Illness:
� Differential Diagnosis includes: But not limited to intracranial bleed, nasal fracture, facial fracture, etc.
Amount and/or Complexity of Data to be Reviewed and Analyzed
� I performed an independent evaluation of and my interpretation is:
EKG:
CT:1.6 cm focal region of low attenuation in the subcortical white matter of the anterior RIGHT FRONTAL LOBE suspicious for vasogenic edema secondary to an INTRAPARENCHYMAL BRAIN METASTASIS. Cytotoxic edema from an acute
ischemic infarct is an alternative less likely diagnostic possibility.
2. 1.3 cm low-attenuation lesion in the right cerebellar hemisphere. Diagnostic possibilities are (1) vasogenic edema from a brain metastasis or (2) cytotoxic edema from an acute ischemic infarct.
3. Mild diffuse cerebral and cerebellar volume loss.
4. Small chronic lacunar infarcts in the left thalamus and posterior limb of the left internal capsule.
5. Embolization coil in the basilar artery.
FACIAL BONES CT:
1. ACUTE BILATERAL NASAL BONE FRACTURES with overlying soft tissue swelling.
2. No CT evidence for acute facial bone, orbital wall, or zygomatic arch fracture.
3. No CT evidence for acute intraorbital injury.
Xrays:
Laboratory Studies: Slightly worsening hyponatremia, anemia, renal function normal
Other:
� Review of other/old records reveals: Patient was recently discharged May 24 after being noted to have a 9.5 cm pulmonary malignancy in the right upper lobe with pleural effusion
� Clinical information was obtained by an independent historian: Daughter who is bedside
� Prescriptions/Medications Considered but not given:
� Further testing considered but not performed:
Risk of Complications and/or Morbidity or Mortality of Patient Management
� Social determinants of health affecting care:
� Discussion with other providers (PCP, Hospitalists, Consultants, etc):
� Escalation of care including admission/observation vs risk of discharge considered: Very supportive family at bedside including 2 daughters. Long Long discussion with patient and family regarding likely new brain mets and
recommendation for transfer to tertiary care hospital such as [facility]. Patient is very very reluctant to be in the hospital overnight, decides to go home with her family and we will see Dr. Lawson as scheduled tomorrow. She understands the
risks of worsening condition and/or especially given the location of 1 met in the cerebellum, but also just generally in regards to these findings. Patient is able to reiterate back to myself and the nurse her understanding of the risks and
reasoning behind her decision making which family is in agreement with. I did emphasize to her that if she changes her mind she should return to the emergency department immediately.
ED Attending Note
<Gaurav Barajas PA-C - Last Filed: 06/06/24 20:56>
-
Portions of this chart may have been created with voice recognition software.� Occasional wrong word or��sound alike� substitutions may have occurred due to the inherent limitations of voice recognition software.
Discharge Plan
Departure
Patient Disposition: Home (Routine Discharge)
Date of Disposition: 06/06/24
Time of Disposition: 17:00
Patient with high blood pressure during this ER visit?: Yes
Condition: Fair
Discharge Problem:
Lung cancer metastatic to brain, Fracture of nasal bone
Instructions: Nose fracture, Brain metastases
Prescriptions:
No Action
cholecalciferol (vitamin D3) [Vitamin D3] 125 mcg (5,000 unit) Tablet
125 mcg PO .Q THURSDAY
hydroxychloroquine 100 mg Tablet
100 mg PO DAILY
rosuvastatin 5 mg Tablet
5 mg PO DAILY
hydrocodone-acetaminophen 10-325 mg Tablet
1 tab PO Q4H
Breztri Aerosphere 160-9-4.8 mcg/actuation Hfa Aerosol Inhaler
2 inh INHALATION BID
albuterol sulfate 90 mcg/actuation Hfa Aerosol Inhaler
2 puff INHALATION Q6H
Primatene Mist 0.125 mg/actuation Hfa Aerosol Inhaler
1 puff INHALATION BID PRN (Reason: if albuterol doesnt work)
lorazepam [Ativan] 0.5 mg tablet
0.5 mg PO BID PRN (Reason: anxiety) Qty: 60 0RF
polyethylene glycol 3350 17 gram/dose powder
17 g PO DAILY Qty: 510 0RF
hydromorphone [Dilaudid] 4 mg tablet
4 mg PO Q6H PRN (Reason: breakthrough pain) Qty: 30 0RF
ondansetron 4 mg tablet,disintegrating
4 mg PO Q6H PRN (Reason: nausea and vomiting) Qty: 20 0RF
Referrals:
Stephanie Bliss MD [Family Provider] -
Fam Lawson DO [Active] - Tomorrow
Activity Restrictions/Additional Instructions:
YOU HAVE FINDINGS ON YOUR CAT SCAN WHICH ARE VERY CONCERNING FOR NEW CANCER IN YOUR BRAIN. WE STRONGLY RECOMMEND THAT YOU BE TRANSFERRED TO A TERTIARY CARE CENTER SUCH [facility], BUT YOU DECLINED. IF YOU CHANGE YOUR MIND, PLEASE
RETURN TO THE EMERGENCY DEPARTMENT SOON POSSIBLE. PLEASE SEE YOUR ONCOLOGIST SCHEDULED TOMORROW. IF YOU DEVELOP NUMBNESS, SEVERE HEADACHE, VOMITING, CHEST PAIN, lethargy, recurrent fall, or other worrisome signs, please return to the ER
immediately.
Interventions
Interventions:
*Risk Screen - Suicide Last Done: 06/06/24 13:17
*General Assessment Last Done: 06/06/24 13:17
*Neglect/Abuse Screening Last Done: 06/06/24 13:17
ED- Fall Risk Assessment Last Done: 06/06/24 13:51
*ED COVID-19 Vaccine History Last Done: 06/06/24 18:24
*Nursing Disposition Last Done: 06/06/24 18:24
ED- Neurological Assessment Last Done: 06/06/24 13:50
ED-Skin Assessment Last Done: 06/06/24 14:31
Discharge Date and Time
Discharge Date/Time: 06/06/24 18:24
Print Language: [place]
[2024-06-06 14:13] VITALS: BP 122/52
[2024-06-06 14:54] LABS: Hematocrit 26.1 % (37.0-47.0); Hemoglobin 8.9 g/dL (12.0-16.0); Mean Corp Hgb Conc. 34.1 g/dL (33.0-37.0); Mean Corpuscular Hgb 28.3 pg (27.0-31.0); Mean Corpuscular Volume 83.1 fL (81.0-99.0); Mean Platelet Volume 9.1 fL (7.4-10.4); Platelet Count 502 10^3/uL (130-400); Red Blood Cell Count 3.14 10^6/uL (4.20-5.40); Red Cell Dist. Width 13.5 % (11.5-14.5); White Blood Cell Count 11.2 10^3/uL (4.8-10.8)
[2024-06-06 15:11] LABS: ALT (SGPT) 14 U/L (0-35); AST (SGOT) 25 U/L (14-36); Albumin 1.6 g/dl (3.5-5.0); Alkaline Phosphatase 77 U/L (38-126); Blood Urea Nitrogen 5 mg/dl (7-17); Calcium 9.1 mg/dl (8.4-10.2); Carbon Dioxide 34 mmol/L (22-30); Chloride 95 mmol/L (98-107); Glucose 99 mg/dl (70-99); Potassium 4.1 mmol/L (3.5-5.1); Sodium 127 mmol/L (135-145); Total Bilirubin 0.3 mg/dl (0.2-1.3); eGFR > 60.00
[2024-06-06] MEDS: ATIVAN 1 MG IV (16:55)
[2024-06-06 17:58] VITALS: BP 136/59
--- NOTE | 2024-06-06 18:10 | VATNOTE ---
Left subq port deaccessed per protocol. Brisk blood return noted prior to. Family stated pt. was not to get port wet since new port as of today. covered with folded 2x2 and small tegaderm.
== END 2024-06-06 18:24 | disposition home or self-care (01) ==
LOC: EMR 13:04
PROVIDERS: EMERGENCY PHYSICIAN Emergency Medicine; FAMILY PHYSICIAN Family Medicine
DX: C34.2 Malignant neoplasm of middle lobe, bronchus or lung (principal); C79.31 Secondary malignant neoplasm of brain; S02.2XXA Fracture of nasal bones, initial encounter for closed fracture; W10.9XXA Fall (on) (from) unspecified stairs and steps, initial encounter; F17.200 Nicotine dependence, unspecified, uncomplicated; M32.9 Systemic lupus erythematosus, unspecified; Z85.3 Personal history of malignant neoplasm of breast
CPT/HCPCS: 99284; 96374; 96375; 70450; 70486; 73130; 80053; 85027; 93005